=== PATIENT | male | born 1980 | race Two or more races ===

== ENCOUNTER 2016-06-29 09:47 | Inpatient (IN) | payer OTHER ==
[~2016-06-29] VITALS: Ht 172.7 cm; Wt 79.7 kg
[2016-06-29 10:41] LABS: BASO % 0.3 % (0.0-1.0); EOS % 0.6 % (0.0-3.0); LARGE UNSTAINED CELL # 0.1 K/mm3 (0.0-0.4); LYMPH # 2.1 K/mm3 (1.5-4.5); MEAN CORPUSCULAR HEMOGLOBIN 32.2 pg (27.0-33.0); MEAN CORPUSCULAR HGB CONC 33.6 g/dl (32.0-36.5); MEAN CORPUSCULAR VOLUME 95.9 fl (80.0-96.0); MONO # 0.3 K/mm3 (0.0-0.8); NEUTROPHILS # 4.1 K/mm3 (1.8-7.7); NEUTROPHILS % 62.1 % (36.0-66.0); PLATELET COUNT, AUTOMATED 272 k/mm3 (150-450); RED CELL DISTRIBUTION WIDTH 12.1 % (11.5-14.5); WHITE BLOOD COUNT 6.6 K/mm3 (4.0-10.0)
[2016-06-29] MEDS ORDERED: THIA50CA PO (10:44)
[2016-06-29] MEDS ORDERED: CLON1TAB (10:44)
[2016-06-29] MEDS ORDERED: FOLI5INJ2 SC (10:44)
[2016-06-29] MEDS ORDERED: SERO200T (10:49)
[2016-06-29] MEDS ORDERED: SERO1TAB PO (10:49)
[2016-06-29 11:04] LABS: ALBUMIN 3.7 GM/DL (3.2-5.2); ALBUMIN/GLOBULIN RATIO 1.09 (1.00-1.93); ALKALINE PHOSPHATASE 67 U/L (45-117); ALT/SGPT 82 U/L (12-78); ANION GAP 11 MEQ/L (8-16); AST/SGOT 60 U/L (15-37); BILIRUBIN,DIRECT 0.1 MG/DL (0.0-0.2); BILIRUBIN,TOTAL 0.5 MG/DL (0.2-1.0); BLOOD UREA NITROGEN 15 MG/DL (7-18); CALCIUM LEVEL 7.8 MG/DL (8.5-10.1); CARBON DIOXIDE LEVEL 32 MEQ/L (21-32); CHLORIDE LEVEL 104 MEQ/L (98-107); CREATININE FOR GFR 1.04 MG/DL (0.70-1.30); GLOMERULAR FILTRATION RATE > 60.0 (>60); GLUCOSE, FASTING 148 MG/DL (70-105); POTASSIUM SERUM 3.5 MEQ/L (3.5-5.1); SODIUM LEVEL 147 MEQ/L (136-145); TOTAL PROTEIN 7.1 GM/DL (6.4-8.2)
[2016-06-29] MEDS ORDERED: ONDANSETRON 4MG/2ML VIAL (J2405) IV ONE (11:45)
[2016-06-29] MEDS ORDERED: PANTOPRAZOLE 40MG INJ (PROTONIX) (C9113) IV ONE (11:45)
--- NOTE | 2016-06-29 20:41 | ECGEPIP ---
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
[2016-06-29 21:17] LABS: METHADONE URINE NEGATIVE (NEGATIVE)
[2016-06-29] MEDS ORDERED: METOCLOPRAMIDE 10 MG TAB PO ONE (21:30)
[2016-06-30] MEDS ORDERED: PHENobarbital 30 MG TAB PO ONE (03:00)
[2016-06-30] MEDS ORDERED: OXAZEPAM 15 MG CAP PO ONE ×3 (08:30→19:45)
[2016-06-30] MEDS ORDERED: QUET5TAB PO (09:18)
[2016-06-30] MEDS ORDERED: FOLI1TAB2 PO (09:21)
[2016-06-30] MEDS ORDERED: THIA100T PO (09:21)
[2016-06-30] MEDS ORDERED: HYDR-4274 PO (09:21)
[2016-06-30] MEDS ORDERED: ONDANSETRON 4 MG ORAL DISINTEGRATING TAB (S0181) PO ONE (10:45)
[2016-06-30] MEDS ORDERED: MOM 30ML SUSPENSION UDC PO PRN (17:00)
[2016-06-30] MEDS ORDERED: traZODone 50 MG TAB PO PRN (17:00)
[2016-06-30] MEDS ORDERED: MAALOX 30 ML SUSP *UDC PO PRN (17:00)
[2016-06-30 18:44] VITALS: BP 130/75
[2016-06-30 18:46] VITALS: BP 130/75
[2016-06-30] MEDS ORDERED: OXAZEPAM 15 MG CAP PO PRN (19:45)
[2016-06-30] MEDS: ONDANSETRON 4 MG TAB (S0181) PO PRN (21:20)
[2016-07-01] MEDS: ONDANSETRON 4 MG TAB (S0181) PO PRN ×3 (06:20→18:57)
[2016-07-01 06:24] VITALS: BP 107/62
[2016-07-01] MEDS: FOLIC ACID 1 MG TAB PO SCH (09:01)
[2016-07-01] MEDS: MULTIVITAMINS/MINERALS THERAP 1 TAB PO SCH (09:01)
[2016-07-01] MEDS: THIAMINE 100 MG TAB PO SCH (09:01)
[2016-07-01 10:45] VITALS: BP 130/84
--- NOTE | 2016-07-01 11:29 | HPEPDOC ---
Medical History and Physical Date of Admission Jun 30, 2016 at 16:59 History and Physical PCP: [facility] ATTENDING: Dr. Robert Basurto HPI: 36yoM admitted to [facility] for unspecified depressive disorder, being medically examined today. Patient presented to the emergency department after drinking alcohol and taking 10 tablets of Seroquel. Poison control was consulted with recommendation for observation and follow-up labs. The patient was medically stabilized in the emergency department and subsequently deemed stable for [facility] admission. No acute medical complaints today. Denies any fevers , chills, weakness, fatigue, MARY, CP, SOB, cough, palpitations, abdominal pain, N /V/D or changes in bowel or bladder habits. 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 Illicit Drugs: Denies IV Drug Use: Denies Tattoos done unprofessionally: Denies FAMHX: Mother: Alive, diabetes Father: Alive, diabetes Siblings: One brother Alive, well Children: Alive, well Unexpected deaths due to medical reasons: None. ROS: As noted in HPI, otherwise 11pt ROS of systems reviewed and remarkable for some nausea in ED but that has improved. Tolerating po intake. PE: GEN: 36yoM, appears stated age. Well-nourished, well developed. No acute distress. Alert and oriented x 3. Pleasant, interactive. HEENT: Normocephalic, atraumatic. Pupils are equal, round, and reactive to light. Extraocular movements are intact. No nystagmus appreciated. Sclera are nonicteric. Conjunctiva without injection. Nose midline. Nasal turbinates without bogginess. EACs both patent BL. TMs both visualized and quick with good cone of light, no bulging or erythema. No facial asymmetry. Moist mucous membranes. Dentition fair. Pharynx pink and moist, no cobblestoning. Neck supple , trachea midline. No lymphadenopathy or thyromegaly appreciated. CHEST: Regular rate and rhythm, +S1, +S2 LUNGS: Clear to auscultation bilaterally. No wheezes, rales, or rhonchi. Breathing appears symmetric and easy. Patient is speaking in full sentences. No accessory muscle use. ABD: Round, soft, non-tender, non-distended. +Bowel sounds throughout. No rebound or guarding. No costovertebral angle tenderness. EXT: Pulses 2+ bilaterally dorsalis pedis and radial. No lower extremity edema appreciated. SKIN: [place], dry, warm. Capillary refill <2sec. No rashes. NEURO: Alert and oriented x 3. Cranial nerves III-XII are intact. No focal deficits appreciated. EK06/29/16 ST 100 bpm. A&P: 36yoM admitted to [facility] for unspecified depressive disorder 1. Psych. Plan per Psychiatry. EKG on file. 2. Hypernatremia. Recheck CMP. 3. Hyperglycemia. Recheck fasting labs as patient was likely not fasting. 4. Follow up with PCP on discharge. 5. Substance use. Per psychiatry. Continue with MVI, Thiamine, and Folic Acid supplementation. 6. Elevated LFTs. Recheck CMP. 7. Staff member present throughout exam, patient safety coordinator Ed. Vital Signs Vital Signs Label Value Date Time Patient Temperature 97.4 degrees F 07/01/16 1045 Temperature Source Tympanic 07/01/16 1045 Pulse 94 07/01/16 1045 Respiratory Rate 16 bpm 07/01/16 1045 Blood Pressure Assessment 130/84 (99) 07/01/16 1045 Laboratory Data Labs 24H Item Value Date Time White Blood Count 6.6 K/mm3 06/29/16 1011 Red Blood Count 4.73 M/mm3 06/29/16 1011 Hemoglobin 15.2 g/dl 06/29/16 1011 Hematocrit 45.4 % 06/29/16 1011 Mean Corpuscular Volume 95.9 fl 06/29/16 1011 Mean Corpuscular Hemoglobin 32.2 pg 06/29/16 1011 Mean Corpuscular Hemoglobin Concent 33.6 g/dl 06/29/16 1011 Red Cell Distribution Width 12.1 % 06/29/16 1011 Platelet Count 272 k/mm3 06/29/16 1011 Neutrophils (%) (Auto) 62.1 % 06/29/16 1011 Lymphocytes (%) (Auto) 30.0 % 06/29/16 1011 Monocytes (%) (Auto) 5.0 % 06/29/16 1011 Eosinophils (%) (Auto) 0.6 % 06/29/16 1011 Basophils (%) (Auto) 0.3 % 06/29/16 1011 Large Unclassified Cells % 2.0 % 06/29/16 1011 Neutrophils # (Auto) 4.1 K/mm3 06/29/16 1011 Lymphocytes # (Auto) 2.1 K/mm3 06/29/16 1011 Eosinophils # (Auto) 0.0 K/mm3 06/29/16 1011 Monocytes # (Auto) 0.3 K/mm3 06/29/16 1011 Basophils # (Auto) 0.0 K/mm3 06/29/16 1011 Large Unclassified Cells # 0.1 K/mm3 06/29/16 1011 Sodium Level 147 MEQ/L H 06/29/16 1011 Potassium Level 3.5 MEQ/L 06/29/16 1011 Chloride Level 104 MEQ/L 06/29/16 1011 Carbon Dioxide Level 32 MEQ/L 06/29/16 1011 Anion Gap 11 MEQ/L 06/29/16 1011 Blood Urea Nitrogen 15 MG/DL 06/29/16 1011 Creatinine 1.04 MG/DL 06/29/16 1011 Glomerular Filtration Rate > 60.0 06/29/16 1011 Fasting Glucose 148 MG/DL H 06/29/16 1011 Calcium Level 7.8 MG/DL L 06/29/16 1011 Total Bilirubin 0.5 MG/DL 06/29/16 1011 Direct Bilirubin 0.1 MG/DL 06/29/16 1011 Aspartate Amino Transf (AST/SGOT) 60 U/L H 06/29/16 1011 Alanine Aminotransferase (ALT/SGPT) 82 U/L H 06/29/16 1011 Alkaline Phosphatase 67 U/L 06/29/16 1011 Total Creatine Kinase 189 U/L 06/29/16 1011 Total Protein 7.1 GM/DL 06/29/16 1011 Albumin 3.7 GM/DL 06/29/16 1011 Albumin/Globulin Ratio 1.09 06/29/16 1011 Thyroid Stimulating Hormone (TSH) 0.788 uIU/ML 06/29/16 1011 Salicylates Level < 1.7 MG/DL L 06/29/16 1011 Urine Opiates Screen NEGATIVE 06/29/162018 Urine Methadone Screen NEGATIVE 06/29/162018 Acetaminophen Level < 2.0 UG/ML L 06/29/16 1011 Urine Barbiturates Screen NEGATIVE 06/29/162018 Urine Phencyclidine Screen NEGATIVE 06/29/162018 Urine Amphetamines Screen NEGATIVE 06/29/162018 Urine Benzodiazepines Screen NEGATIVE 06/29/162018 Urine Cocaine Metabolite Screen NEGATIVE 06/29/162018 Urine Cannabinoids Screen NEGATIVE 06/29/162018 Ethyl Alcohol Level 0.377 % H 06/29/16 1011 Home Medications Scheduled Clonazepam (Clonazepam) Unknown Strength Tab Unknown Dose TID PT UNSURE OF STRENGTH- UNABLE TO CALL PHARMACY JUST MOVED HERE FROM OUT OF STATE - PT NOT GOOD HISTORIAN Folic Acid (Folic Acid) 1 Mg Tab 1 MG PO DAILY Hydroxyzine HCl (Hydroxyzine HCl) Unknown Strength Tab Unknown Dose PO TID PT UNSURE OF STRENGTH- UNABLE TO CALL PHARMACY JUST MOVED HERE FROM OUT OF STATE - PT NOT GOOD HISTORIAN Quetiapine Fumerate (Seroquel) 100 Mg Tab 100 MG PO QHS Quetiapine Fumerate (Quetiapine Fumarate) 50 Mg Tab 50 MG PO BID 0800,1300 Thiamine HCl (Thiamine HCl) 100 Mg Tab 100 MG PO DAILY Allergies Coded Allergies: Sulfa Antibiotics (Verified Allergy, Intermediate, hives, 06/29/16) Jigna Yan Jul 01, 2016 11:29
[2016-07-01] MEDS ORDERED: chlordiazePOXIDE 25 MG CAP PO ONE (12:00)
[2016-07-01] MEDS: buPROPion 75 MG TAB PO SCH ×2 (12:10→21:05)
[2016-07-01] MEDS: chlordiazePOXIDE 25 MG CAP PO SCH ×2 (16:11→21:05)
[2016-07-01 18:00] VITALS: BP 122/71
[2016-07-01] MEDS ORDERED: traZODone 100 MG TAB PO SCH (21:00)
[2016-07-01] MEDS ORDERED: ACETAMINOPHEN TAB 650MG DOSE (2X325MG) PO PRN (22:45)
[2016-07-02 06:45] VITALS: BP 107/54
[2016-07-02 07:50] LABS: ALBUMIN 3.8 GM/DL (3.2-5.2); ALBUMIN/GLOBULIN RATIO 1.19 (1.00-1.93); ALKALINE PHOSPHATASE 81 U/L (45-117); ALT/SGPT 65 U/L (12-78); ANION GAP 9 MEQ/L (8-16); AST/SGOT 28 U/L (15-37); BILIRUBIN,TOTAL 1.1 MG/DL (0.2-1.0); BLOOD UREA NITROGEN 13 MG/DL (7-18); CALCIUM LEVEL 8.7 MG/DL (8.5-10.1); CARBON DIOXIDE LEVEL 31 MEQ/L (21-32); CHLORIDE LEVEL 102 MEQ/L (98-107); CREATININE FOR GFR 1.21 MG/DL (0.70-1.30); GLOMERULAR FILTRATION RATE > 60.0 (>60); GLUCOSE, FASTING 120 MG/DL (70-105); POTASSIUM SERUM 3.5 MEQ/L (3.5-5.1); SODIUM LEVEL 142 MEQ/L (136-145)
[2016-07-02] MEDS: chlordiazePOXIDE 25 MG CAP PO SCH ×3 (08:36→21:04)
[2016-07-02] MEDS: buPROPion 75 MG TAB PO SCH ×2 (08:36→21:03)
[2016-07-02] MEDS: FOLIC ACID 1 MG TAB PO SCH (08:37)
[2016-07-02] MEDS: ONDANSETRON 4 MG TAB (S0181) PO PRN (08:37)
[2016-07-02] MEDS: MULTIVITAMINS/MINERALS THERAP 1 TAB PO SCH (08:37)
[2016-07-02] MEDS: THIAMINE 100 MG TAB PO SCH (08:37)
[2016-07-02] MEDS: chlordiazePOXIDE 25 MG CAP PO PRN ×2 (09:25→16:56)
[2016-07-02 10:32] VITALS: BP 131/72
[2016-07-02 14:22] VITALS: BP 124/74
[2016-07-02 18:00] VITALS: BP 126/57
--- NOTE | 2016-07-02 20:14 | IPN ---
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 MEDICATIONS: - Librium 50 mg by mouth three times a day plus 50 mg by mouth three times a day as needed for alcohol withdrawal - trazodone 100 mg by mouth at bedtime - Wellbutrin 75 mg by mouth twice a day - thiamine, folic acid, and multivitamin as per detoxification (detox) protocol SUBJECTIVE: "I'm still having withdrawal symptoms." OBJECTIVE: The patient reports that after one hour of taking the Librium, he starts shaking again. I discussed the treatment with the patient. I told him that he has additional medication and when he feels that he has withdrawal symptoms, to call nursing to be evaluated. The patient appears to be motivated for treatment. The patient continues to be depressed with psychomotor retardation and poor monotone speech. The patient reports insomnia. MENTAL STATUS EXAMINATION: The patient is dressed in [facility]. The patient is cooperative during exam. Speech is slow and monotone. Mood is depressed and anxious. Affect is restricted. No evidence of delusions or hallucinations. Memory is fair. Patient is fully oriented. Associations are intact. Thinking is logical. Thought content is appropriate. Patient is able to contract for safety. Denies suicidal or homicidal ideations during the interview. Insight and judgment are fair. ASSESSMENT: 1. Depression. 2. Suicidal ideation. 3. Alcohol dependency. PLAN: 1. Increase trazodone to 150 mg by mouth at bedtime. 2. Continue with Librium 50 mg by mouth three times a day, plus 50 mg by mouth three times a day as needed for alcohol withdrawal. 3. Continue with bupropion 75 mg by mouth twice a day. 4. Continue with thiamine, folic acid, and multivitamin as per detox protocol.
[2016-07-02] MEDS: traZODone 50 MG TAB PO SCH (21:04)
[2016-07-02 22:00] VITALS: BP 126/64
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
[2016-07-03 06:46] VITALS: BP 94/51
[2016-07-03] MEDS: THIAMINE 100 MG TAB PO SCH (08:14)
[2016-07-03] MEDS: chlordiazePOXIDE 25 MG CAP PO SCH ×3 (08:14→22:32)
[2016-07-03] MEDS: buPROPion 75 MG TAB PO SCH ×2 (08:14→22:31)
[2016-07-03] MEDS: FOLIC ACID 1 MG TAB PO SCH (08:14)
[2016-07-03] MEDS: MULTIVITAMINS/MINERALS THERAP 1 TAB PO SCH (08:14)
[2016-07-03] MEDS: ONDANSETRON 4 MG TAB (S0181) PO PRN ×2 (10:32→16:08)
[2016-07-03 11:46] VITALS: BP 90/54
[2016-07-03 18:00] VITALS: BP 113/64
[2016-07-03] MEDS: traZODone 50 MG TAB PO SCH (22:31)
[2016-07-04 07:08] VITALS: BP 94/52
[2016-07-04] MEDS: buPROPion 75 MG TAB PO SCH ×2 (09:16→21:33)
[2016-07-04] MEDS: MULTIVITAMINS/MINERALS THERAP 1 TAB PO SCH (09:16)
[2016-07-04] MEDS: THIAMINE 100 MG TAB PO SCH (09:16)
[2016-07-04] MEDS: FOLIC ACID 1 MG TAB PO SCH (09:16)
[2016-07-04] MEDS: chlordiazePOXIDE 25 MG CAP PO SCH ×3 (09:16→21:33)
--- NOTE | 2016-07-04 11:23 | IPN ---
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 MEDICATIONS: - Librium 50 mg by mouth three times a day plus 50 mg by mouth three times a day as needed for alcohol withdrawal. - trazodone 150 mg by mouth at bedtime - Wellbutrin 75 mg by mouth twice a day - thiamine, folic acid and multivitamins per alcohol detoxification protocol SUBJECTIVE: "I still have withdrawal symptoms." OBJECTIVE: Patient reports withdrawal symptoms, but his vital signs are mostly stable. Patient reports some distal tremors. Patient is having to take an extra dose of Librium a day. Patient continues depressed. He is mostly by himself in the room, interacting very little with other patients and staff. Continues with psychomotor retardation and poor monotone speech. Reports insomnia. MENTAL STATUS EXAMINATION: Patient is dressed in [facility]. Patient is cooperative during the examination. Has poor eye contact. Speech is soft and monotone. Mood is depressed and anxious. Affect is congruent with mood. No delusions or hallucinations. Memory is fair. Patient is fully oriented. Associations are intact. Thinking is logical. Thought content is appropriate. Patient is able to contract for safety. Denies suicidal or homicidal ideation during the interview. Insight and judgment is limited. ASSESSMENT: 1. Depression. 2. Suicidal ideation. 3. Alcohol dependency. PLAN: 1. Continue with trazodone 150 mg by mouth at bedtime. 2. Continue with Librium 50 mg by mouth three times a day plus 50 mg by mouth three times a day as needed insomnia. This medication will need to be tapered in the next one or two days. 3. Continue with bupropion 75 mg by mouth twice a day. 4. Continue with thiamin, folic acid and multivitamins as per detoxification protocol.
[2016-07-04 11:31] VITALS: BP 110/56
[2016-07-04 18:00] VITALS: BP 108/60
[2016-07-04] MEDS: traZODone 50 MG TAB PO SCH (21:34)
[2016-07-05 06:54] VITALS: BP 91/54
[2016-07-05] MEDS: MULTIVITAMINS/MINERALS THERAP 1 TAB PO SCH (09:00)
[2016-07-05] MEDS: THIAMINE 100 MG TAB PO SCH (09:00)
[2016-07-05] MEDS: NALTREXONE 50 MG TAB PO SCH (09:00)
[2016-07-05] MEDS: chlordiazePOXIDE 25 MG CAP PO SCH ×3 (09:00→20:46)
[2016-07-05] MEDS: buPROPion 75 MG TAB PO SCH ×2 (09:00→20:46)
[2016-07-05] MEDS: FOLIC ACID 1 MG TAB PO SCH (09:00)
[2016-07-05 12:00] VITALS: BP 106/58
[2016-07-05 18:00] VITALS: BP 120/56
[2016-07-05] MEDS: traZODone 50 MG TAB PO SCH (20:46)
[2016-07-06 06:22] VITALS: BP 102/68
[2016-07-06] MEDS: buPROPion 75 MG TAB PO SCH ×2 (08:21→21:16)
[2016-07-06] MEDS: THIAMINE 100 MG TAB PO SCH (08:21)
[2016-07-06] MEDS: NALTREXONE 50 MG TAB PO SCH (08:21)
[2016-07-06] MEDS: FOLIC ACID 1 MG TAB PO SCH (08:21)
[2016-07-06] MEDS: chlordiazePOXIDE 25 MG CAP PO SCH (08:22)
[2016-07-06] MEDS: MULTIVITAMINS/MINERALS THERAP 1 TAB PO SCH (08:22)
[2016-07-06] MEDS: clonazePAM 0.5 MG TAB PO SCH ×2 (15:52→21:16)
[2016-07-06 18:00] VITALS: BP 111/57
[2016-07-06] MEDS: traZODone 50 MG TAB PO SCH (21:16)
[2016-07-07 06:45] VITALS: BP 98/55
--- NOTE | 2016-07-07 07:35 | IPN ---
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 He has presently been placed on Klonopin 0.5 three times a day by me and his Librium has been discontinued due to being redundant. MEDICATIONS: - trazodone 150 mg at bedtime - Wellbutrin 75 mg twice a day - thiamine - folic acid - multivitamin He was having withdrawal symptoms. He stated to nursing that he was significantly anxious and asked us to change him to Klonopin. He stated this is what he needed for anxiety. His symptoms of anxiety may be due merely to his use of alcohol. He is to be chaptered out of the [employer]. He states he overdosed on alcohol and Seroquel when his Wellbutrin was stopped. He has been a binge drinker he states, but he contradicts that by stating he had drank every day for the last two years. MENTAL STATUS EXAMINATION: The patient is downcast in appearance and anxious. His eye contact is only fair. His speech is quiet with normal articulation. His mood was euthymic. His affect was somewhat flat. He denies hallucinations or delusions. His memory was remote, recent, intact. He was fully oriented. No loose associations, and presently denied suicidal or homicidal ideation. Judgment was fair. ASSESSMENT: 1. Depression. 2. Suicidal ideation. 3. Alcohol dependency. TREATMENT PLAN: Continue his management and return [facility] to the [employer] for [facility] treatment MTDD
[2016-07-07] MEDS: FOLIC ACID 1 MG TAB PO SCH (08:17)
[2016-07-07] MEDS: MULTIVITAMINS/MINERALS THERAP 1 TAB PO SCH (08:18)
[2016-07-07] MEDS: buPROPion 75 MG TAB PO SCH ×2 (08:18→21:39)
[2016-07-07] MEDS: THIAMINE 100 MG TAB PO SCH (08:18)
[2016-07-07] MEDS: NALTREXONE 50 MG TAB PO SCH (08:18)
[2016-07-07] MEDS: clonazePAM 0.5 MG TAB PO SCH (08:18)
[2016-07-07] MEDS ORDERED: QUET5TAB PO (09:53)
[2016-07-07] MEDS ORDERED: CLON1TAB PO (09:53)
[2016-07-07] MEDS: clonazePAM 1 MG TAB PO SCH ×2 (15:09→21:39)
--- NOTE | 2016-07-07 18:05 | IPN ---
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 He is presently on Klonopin, which we increased to 1 mg three times a day, as the patient continues to describe anxiety but is having no other withdrawal symptoms. He states he drank since he was 19 years old, drinking a pint of vodka a day. He describes himself as a binge drinker, but, in fact, his pattern is of chronic alcoholism. MENTAL STATUS EXAMINATION: The patient was less downcast in appearance, and although he did appear anxious, his eye contact was good. His speech was quiet with normal articulation. His mood was euthymic. His affect was slightly improved. He denied hallucinations or delusions. His memory was intact for remote and recent memory. He is fully oriented with no loose associations and presently denies suicidal or homicidal ideation. His judgment is fair. ASSESSMENT: Depression. Suicidal ideation. Alcohol dependency. TREATMENT PLAN: Is to continue his management and return him to the [employer] for alcohol treatment and rehabilitation. BA
[2016-07-07 20:44] VITALS: BP 98/50
[2016-07-07] MEDS: traZODone 50 MG TAB PO SCH (21:39)
[2016-07-08 06:00] VITALS: BP 97/60
[2016-07-08] MEDS: NALTREXONE 50 MG TAB PO SCH (08:36)
[2016-07-08] MEDS: clonazePAM 1 MG TAB PO SCH ×2 (08:36→21:25)
[2016-07-08] MEDS: MULTIVITAMINS/MINERALS THERAP 1 TAB PO SCH (08:36)
[2016-07-08] MEDS: THIAMINE 100 MG TAB PO SCH (08:36)
[2016-07-08] MEDS: FOLIC ACID 1 MG TAB PO SCH (08:36)
[2016-07-08] MEDS: buPROPion 75 MG TAB PO SCH ×2 (08:36→21:24)
[2016-07-08] MEDS ORDERED: BISACODYL 5 MG TAB PO ONE (15:45)
[2016-07-08 18:00] VITALS: BP 107/55
[2016-07-08] MEDS: traZODone 50 MG TAB PO SCH (21:24)
--- NOTE | 2016-07-08 21:45 | IPN ---
DATE: 07/08/2016 I saw Mr. Trevino today. I discussed him with group. 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 He had previously discussed needing and willingness to go to long-term alcohol inpatient treatment but today tells me he changed his mind 203 days ago. 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 He changed his mind. He would like to go to [place] to work. He says he is presently in the [facility] program, and he would like to be discharged this week. From a medical point of view, he has complaints of constipation, and I placed him on bisacodyl medication. MENTAL STATUS: Patient was less downcast. Did not appear anxious and agreed to my decreasing his Klonopin. His eye contact was good. His speech was quiet with normal articulation. His mood was euthymic. His affect continued to be neutral. No hallucinations or delusions. His memory was intact for remote and recent memory. He was fully oriented with no loose associations and presently denies suicidal or homicidal ideation. His judgment is fair. ASSESSMENT/DIAGNOSIS: Depression and alcohol dependency. He will return to the [facility] for alcohol treatment and rehabilitation and discharge. BA
[2016-07-09 06:26] VITALS: BP 100/53
[2016-07-09] MEDS: buPROPion 75 MG TAB PO SCH ×2 (09:05→20:57)
[2016-07-09] MEDS: MULTIVITAMINS/MINERALS THERAP 1 TAB PO SCH (09:05)
[2016-07-09] MEDS: NALTREXONE 50 MG TAB PO SCH (09:05)
[2016-07-09] MEDS: FOLIC ACID 1 MG TAB PO SCH (09:05)
[2016-07-09] MEDS: clonazePAM 1 MG TAB PO SCH (09:05)
[2016-07-09] MEDS: THIAMINE 100 MG TAB PO SCH (09:06)
[2016-07-09] MEDS ORDERED: hydrOXYzine 25 MG TAB PO PRN (11:45)
[2016-07-09 18:00] VITALS: BP 107/64
--- NOTE | 2016-07-09 19:22 | IPN ---
DATE: 07/09/2016 SUBJECTIVE: Mr. Trevino was seen with me today and nursing. He stated he needed something for anxiety since we were discontinuing his Klonopin. We have prescribed Atarax 25 mg four times a day. He stated his constipation is relieved and that, however, he was waking up in the middle of the night. We increased his trazodone to 200 mg. He continues to not want to go to alcohol treatment and merely wants to return to the [employer] and go to their outpatient program. I will discuss it with the business planner. MENTAL STATUS EXAMINATION: Mood is generally improved. Eye contact good. Speech was quiet. Normal articulation and volume speech. His mood was euthymic. His affect continued to be neutral. No hallucinations or delusions. His memory was intact for remote and recent episodes. He was fully oriented with no loose associations and presently denies suicidal or homicidal ideations. ASSESSMENT/DIAGNOSES: 1. Depression. 2. Alcohol dependency. Treatment and rehabilitation will be discussed with discharge planning.
[2016-07-09] MEDS: traZODone 100 MG TAB PO SCH (20:57)
[2016-07-09] MEDS ORDERED: traZODone 50 MG TAB PO SCH (21:00)
[2016-07-10 06:27] VITALS: BP 104/53
[2016-07-10] MEDS: MULTIVITAMINS/MINERALS THERAP 1 TAB PO SCH (08:33)
[2016-07-10] MEDS: THIAMINE 100 MG TAB PO SCH (08:33)
[2016-07-10] MEDS: FOLIC ACID 1 MG TAB PO SCH (08:33)
[2016-07-10] MEDS: NALTREXONE 50 MG TAB PO SCH (08:34)
[2016-07-10] MEDS: buPROPion 75 MG TAB PO SCH ×2 (08:34→21:40)
[2016-07-10] MEDS ORDERED: clonazePAM 1 MG TAB PO SCH (09:00)
[2016-07-10] MEDS: hydrOXYzine 50 MG TAB PO PRN ×2 (14:39→21:40)
[2016-07-10 18:00] VITALS: BP 96/52
[2016-07-10] MEDS: traZODone 100 MG TAB PO SCH (21:40)
--- NOTE | 2016-07-11 06:19 | IPN ---
DATE: 07/10/2016 Mr. Trevino complains of anxiety. He was not aware that I had prescribed Atarax. I have now prescribed Atarax at 50 mg by mouth four times a day as needed for anxiety. He continues to not want inpatient alcohol rehabilitation and will be attending outpatient treatment for his alcoholism as per the . He denies hallucinations, delusions, obsessions, compulsions or phobias. Affect is flat. Mood is fair. Speech is slow, volume is quiet. Memory for recent and remote is intact. He is fully oriented, full fund of information. No loose associations. He denies suicidal or homicidal ideation, and his judgment is fair.
[2016-07-11 06:41] VITALS: BP 97/53
[2016-07-11] MEDS: buPROPion 75 MG TAB PO SCH ×2 (09:00→21:38)
[2016-07-11] MEDS: MULTIVITAMINS/MINERALS THERAP 1 TAB PO SCH (09:00)
[2016-07-11] MEDS: FOLIC ACID 1 MG TAB PO SCH (09:00)
[2016-07-11] MEDS: NALTREXONE 50 MG TAB PO SCH (09:00)
[2016-07-11] MEDS: THIAMINE 100 MG TAB PO SCH (09:00)
[2016-07-11] MEDS: hydrOXYzine 50 MG TAB PO PRN ×3 (09:02→21:39)
[2016-07-11 18:00] VITALS: BP 123/58
[2016-07-11] MEDS: traZODone 100 MG TAB PO SCH (21:38)
[2016-07-11] MEDS: MICONAZOLE 2 % POWDER (DESENEX) TOP SCH (21:39)
[2016-07-12 06:46] VITALS: BP 102/53
[2016-07-12] MEDS: FOLIC ACID 1 MG TAB PO SCH (08:22)
[2016-07-12] MEDS: hydrOXYzine 50 MG TAB PO PRN (08:22)
[2016-07-12] MEDS: MULTIVITAMINS/MINERALS THERAP 1 TAB PO SCH (08:22)
[2016-07-12] MEDS: THIAMINE 100 MG TAB PO SCH (08:22)
[2016-07-12] MEDS: MICONAZOLE 2 % POWDER (DESENEX) TOP SCH ×2 (08:22→21:11)
[2016-07-12] MEDS: NALTREXONE 50 MG TAB PO SCH (08:22)
[2016-07-12] MEDS: buPROPion 75 MG TAB PO SCH ×2 (08:22→21:09)
[2016-07-12] MEDS: FLUoxetine 10 MG CAP PO SCH (14:49)
[2016-07-12 18:00] VITALS: BP 114/58
[2016-07-12] MEDS: traZODone 100 MG TAB PO SCH (21:09)
[2016-07-13 06:38] VITALS: BP 95/55
[2016-07-13] MEDS: MICONAZOLE 2 % POWDER (DESENEX) TOP SCH (09:24)
[2016-07-13] MEDS: FLUoxetine 10 MG CAP PO SCH (09:24)
[2016-07-13] MEDS: MULTIVITAMINS/MINERALS THERAP 1 TAB PO SCH (09:24)
[2016-07-13] MEDS: FOLIC ACID 1 MG TAB PO SCH (09:24)
[2016-07-13] MEDS: THIAMINE 100 MG TAB PO SCH (09:24)
[2016-07-13] MEDS: NALTREXONE 50 MG TAB PO SCH (09:24)
[2016-07-13] MEDS: buPROPion 75 MG TAB PO SCH (09:24)
--- NOTE | 2016-07-13 09:32 | IPN ---
DATE: 07/13/2016 I had met with Mr. Trevino over the weekend. He continued with complaints of anxiety. When I first took over his case, he had been on a benzodiazepine, which was reduced due to his alcohol use and he had previously to that been on Librium. He continued his complaints of anxiety throughout his stay last week. I had given him Atarax, which was then increased as an as needed to 50 mg four times a day. He felt no improvement. Yesterday, I prescribed fluoxetine 10 mg. Today, patient states he is feeling significantly better. His affect is brighter. His anxiety is reduced. His eye contact is better. We will be discussing his discharge back to the [facility] today in treatment team. Patient's appearance is appropriate. Eye contact was good. Speech was of a higher volume than previously. Articulation was good. Mood was improved. Affect was brighter. He denied hallucinations and delusions. Memory was good. Orientation in three spheres was present. No loose associations. He denied suicidal or homicidal ideation. Judgment was good. DIAGNOSIS: Generalized anxiety disorder. Alcohol dependence.
[2016-07-13] MEDS ORDERED: MICO2POW TOP (10:21)
[2016-07-13] MEDS ORDERED: THIA100TA PO (10:21)
[2016-07-13] MEDS ORDERED: TRAZ10TA PO (10:21)
[2016-07-13] MEDS ORDERED: BUPR75TA5 PO (10:21)
[2016-07-13] MEDS ORDERED: FLUO10CA9 PO (10:21)
[2016-07-13] MEDS ORDERED: NALT50TA4 PO (10:21)
[2016-07-13] MEDS ORDERED: FOLI1TAB2 PO (10:21)
[2016-07-13] MEDS ORDERED: DESE1CRE TOP (10:36)
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
[2016-07-13] MEDS ORDERED: MICONAZOLE 2 % POWDER (DESENEX) TOP SCH (21:00)
== END 2016-07-13 12:35 | disposition home or self-care (01) | DRG 881 ==
LOC: EDBD 09:47 → M ED 14:02 → M ED INP 06-30 16:59 → M PSY 06-30 18:42
PROVIDERS: ADMIT Internal Medicine Addiction Medicine; ATTEND Psychiatry & Neurology Child & Adolescent Psychiatry
DX: F32.9 Major depressive disorder, single episode, unspecified (principal); F10.24 Alcohol dependence with alcohol-induced mood disorder; E87.0 Hyperosmolality and hypernatremia; F10.229 Alcohol dependence with intoxication, unspecified; T43.592A Poisoning by other antipsychotics and neuroleptics, intentional self-harm, initial encounter; Y92.9 Unspecified place or not applicable; K59.00 Constipation, unspecified; F41.1 Generalized anxiety disorder; Z81.1 Family history of alcohol abuse and dependence; Z62.811 Personal history of psychological abuse in childhood; Z81.8 Family history of other mental and behavioral disorders; Z88.2 Allergy status to sulfonamides; Z79.899 Other long term (current) drug therapy

== ENCOUNTER 2016-10-08 00:28 | Observation (INO) | payer OTHER ==
[~2016-10-08] VITALS: Ht 172.7 cm; Wt 78.5 kg
[~2016-10-08 00:28] MED LIST: BUPR75TA5 PO; CLON1TAB; CLON1TAB PO; DESE1CRE TOP; FLUO10CA9 PO; FOLI1TAB2 PO; FOLI5INJ2 SC; HYDR-4274 PO; MICO2POW TOP; NALT50TA4 PO; QUET5TAB PO; SERO1TAB PO; SERO200T; THIA100T PO; THIA100TA PO; THIA50CA PO; TRAZ10TA PO
[2016-10-08] MEDS ORDERED: WELLTAB38 PO ×2 (00:52→07:32)
[2016-10-08] MEDS ORDERED: MELA0.02 PO (00:52)
[2016-10-08] MEDS ORDERED: CHARCOAL ACTIVATED LIQUID 25 GM/120 ML BTL PO ONE (01:15)
[2016-10-08 01:49] LABS: ALBUMIN 4.6 GM/DL (3.2-5.2); ALBUMIN/GLOBULIN RATIO 1.21 (1.00-1.93); ALKALINE PHOSPHATASE 61 U/L (45-117); ALT/SGPT 21 U/L (12-78); ANION GAP 6 MEQ/L (8-16); AST/SGOT 13 U/L (15-37); BILIRUBIN,DIRECT 0.2 MG/DL (0.0-0.2); BILIRUBIN,TOTAL 0.6 MG/DL (0.2-1.0); BLOOD UREA NITROGEN 9 MG/DL (7-18); CALCIUM LEVEL 8.8 MG/DL (8.5-10.1); CARBON DIOXIDE LEVEL 32 MEQ/L (21-32); CHLORIDE LEVEL 105 MEQ/L (98-107); CREATININE FOR GFR 1.22 MG/DL (0.70-1.30); GLOMERULAR FILTRATION RATE > 60.0 (>60); GLUCOSE, FASTING 92 MG/DL (70-105); POTASSIUM SERUM 3.8 MEQ/L (3.5-5.1); SODIUM LEVEL 143 MEQ/L (136-145); TOTAL PROTEIN 8.4 GM/DL (6.4-8.2)
[2016-10-08 01:57] LABS: MEAN CORPUSCULAR HEMOGLOBIN 31.5 pg (27.0-33.0); MEAN CORPUSCULAR HGB CONC 33.8 g/dl (32.0-36.5); MEAN CORPUSCULAR VOLUME 93.2 fl (80.0-96.0); RED CELL DISTRIBUTION WIDTH 11.6 % (11.5-14.5); WHITE BLOOD COUNT 5.6 K/mm3 (4.0-10.0)
[2016-10-08 03:34] LABS: METHADONE URINE NEGATIVE (NEGATIVE)
[2016-10-08] MEDS: HEPARIN SOD (PORCINE) 5000 UNITS/ML VIAL SC SCH ×2 (06:00→14:00)
[2016-10-08] MEDS ORDERED: NS 1,000 ML IV ONE ×2 (07:30→11:00)
[2016-10-08] MEDS ORDERED: TRAZ100T4 PO (07:32)
[2016-10-08] MEDS ORDERED: FLUO20TA28 PO (07:32)
[2016-10-08] MEDS ORDERED: ACET-654 PO (07:33)
[2016-10-08] MEDS ORDERED: IBUP80TA PO (07:33)
[2016-10-08] MEDS ORDERED: ACETAMINOPHEN TAB 650MG DOSE (2X325MG) PO PRN ×2 (08:00→10:15)
--- NOTE | 2016-10-08 09:29 | ECGEPIP ---
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
[2016-10-08] MEDS: NS 1,000 ML IV SCH ×2 (09:49→12:58)
[2016-10-08] MEDS ORDERED: KETOROLAC 30 MG/ML VIAL (J1885) IV ONE (10:00)
[2016-10-08] MEDS ORDERED: IBUPROFEN 600 MG TAB PO PRN (10:15)
[2016-10-08] MEDS ORDERED: FIORICET TAB PO ONE (10:15)
--- NOTE | 2016-10-08 11:41 | HPE ---
DATE OF ADMISSION: 10/08/2016 PRIMARY CARE PROVIDER: Rosa Maria Garza CHIEF COMPLAINT: Possible drug overdose, alcohol intoxication. HISTORY OF PRESENT ILLNESS: This is a 36-year-old male with a history of severe depression, anxiety, alcohol dependency who was recently admitted to the inpatient mental health unit at [facility] on 06/30 and discharged on 07/13/2016 for similar issues. Was brought in to the emergency room due to alcohol intoxication, as well as evaluation for possible drug overdose and suicide attempt. The patient has been in his usual state of health and has not had any alcohol since June 29, 2016. 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 The patient was drinking at 8:30 a.m. He denies any recent stressors, such as relationship issues or job stressors. He felt like drinking. He had two bottles of beer at home when his colleague entered the room at 10:30 and found him drinking, had called the ambulance due to concerns of empty pill bottles in his home. The patient was brought into the emergency room for a possible Wellbutrin overdose. At that time, EKG was normal. No prolonged QT. Poison Control was contacted and recommended admission for observation, as well as repeat 12-lead EKG in 8 to 12 hours. The patient denied any suicidal ideation or attempt. He states that he does not even have the pills with him at home and that the medication, trazodone, Prozac and Wellbutrin are dispensed by the [facility]. This was not confirmed until the patient was admitted to the hospital. The hospitalist service was called for admission for possible suicide overdose. The patient did receive one dose of oral charcoal. Upon speaking with the patient, I then obtained the information that he does not have medications at home and that this is given at the pharmacy once daily. We confirmed with the pharmacy that they do have these medications there and the patient is not in possession of them and that he does receive one tablet daily, for which he comes in the morning. His last dose was on 10/06/2016. The patient was brought into the hospital on 10/07/2016. PAST MEDICAL HISTORY: 1. Severe depression. 2. Alcohol dependency. 3. Anxiety. 4. Previous inpatient mental health unit admission in [place] and again at [facility] from 06/30 to 07/13/2016. 5. History of suicide ideation, overdose and insomnia. PAST SURGICAL HISTORY: 1. LASIK eye surgery. SOCIAL HISTORY: Resides at [place]. He is . He has three children. 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 Drinks one pint of vodka daily for the past two years with history of binge drinking. Denies illicit drug use or IV drug use. Tattoos done unprofessionally. FAMILY HISTORY: Mother with diabetes and alive. Father with diabetes and alive. One brother alive and well. REVIEW OF SYSTEMS: Denies any changes in appetite, low mood. Has a history of depression and anxiety, suicide ideation and overdose. History of alcohol dependency. Currently complains of generalized headache. No photophobia or neck rigidity. Denies rhinorrhea, sore throat, ear discharge or pain. Denies shortness of breath, chest pain, pressure, tightness, cough, fever or chills, nausea, vomiting, diarrhea, abdominal pain, dysuria, urgency, frequency. Upper and lower extremity muscle weakness, joint pain, or paresthesias. All other systems otherwise negative. 12-point system obtained. PHYSICAL EXAMINATION: VITAL SIGNS: Temperature 98.3, pulse 89, respiratory rate 16, blood pressure 107/55, 98% on room air. GENERAL: The patient is awake, alert, oriented times three. Answering questions appropriately. LUNGS: Clear to auscultation. No wheezes, rales, or rhonchi. HEART: S1, S2. Sinus rhythm. ABDOMEN: Soft, nontender, nondistended. Normoactive bowel sounds. EXTREMITIES: No cyanosis, clubbing or pitting edema. EKG showed sinus rhythm with a ventricular rate of 72. MS interval 181, QRS 93, QT 347, QTC 372 at 1:20 a.m. on 10/08/2016. LABORATORY DATA: White count 5.6, hemoglobin 16, hematocrit 47, platelet count 251. Sodium 143, potassium 3.8, chloride 105, bicarbonate 32, BUN 9, creatinine 1.22, glucose 92, calcium 8.8, total bilirubin 0.6, direct bilirubin 0.2, AST 13, ALT 21, alkaline phosphatase 61, total protein 8.4, albumin 4.6, TSH 0.74. ASSESSMENT AND PLAN: This is a 36-year-old male with a history of suicidal ideation, drug overdose, previous inpatient mental health unit admission in [place] and again at [facility] from 06/30 to 07/13/2016, severe depression, anxiety, alcohol dependence, presents to the emergency room, brought in by his colleagues due to alcohol intoxication with question of suicidal ideation and possible drug overdose with Wellbutrin bottle found empty at his home. The patient denies any suicidal ideation or attempt. Denies any drug overdose. 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 He goes to the pharmacy daily to obtain this medication, he does not keep any at his home. In the emergency room without this information, the patient was treated for possible Wellbutrin overdose and suicide attempt, was given activated charcoal times one. Upon admission, the patient gave more detailed history, confirmed with [facility] pharmacy, who states that the last fill on his medications was on 09/25/2016 and that the rest of the pills are with them at the pharmacy. The patient does not possess any of these medications. His last dose of medication was on 10/06/2016. The patient was brought into the emergency room on 10/07/2016. Last medications given were six tablets of trazodone and one tablet of Wellbutrin and four Prozac. The patient was admitted for alcohol intoxication and evaluation by the psychiatrist for severe depression. Currently with no suicidal ideation or plan. CURRENT ISSUES: 1. Alcohol intoxication. The patient has a history of alcohol dependence and alcohol abuse. Outpatient followup with rehabilitation program. The patient states that there have been no recent stressors in his life. He is currently retiring, this is his last week in the and will be returning back to [place] where he has his immediate family. Watch for delirium tremens precautions. Monitor for symptoms. 2. The patient complains of headache. The patient will be given IV Toradol and Fioricet as needed. 3. Severe depression with questionable suicide attempt and possible Wellbutrin overdose. The patient did receive one dose of oral activated charcoal by Dr. Tello, emergency room physician. Poison Control recommended monitoring for 24 hours. However, history was obtained from the patient and confirmed with his outpatient [facility] pharmacy states that the patient was not in possession of any medications at all and usually receives grape picker for his medications and takes his medications from the pharmacist at [facility]. Therefore, the patient will not be treated as a drug overdose. We will however recheck a repeat 12-lead EKG now and in six hours. Monitor for any changes. He is medically stable to be discharged once the psychiatrist clears him for discharge home. DISPOSITION: The patient is fine to be discharged home after Dr. Cain, psychiatrist, has evaluated him and if she feels that he is safe to be discharged.
[2016-10-08 14:55] VITALS: BP 110/66
--- NOTE | 2016-10-08 17:09 | ECGEPIP ---
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
--- NOTE | 2016-10-08 17:18 | ECGEPIP ---
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
--- NOTE | 2016-10-09 13:11 | CR ---
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 Apparently his command had found him intoxicated in his room and seeing some empty prescription bottles and were worried that he had overdosed. The patient denied that he had overdosed. Apparently, it seems that [facility] gives this patient his medications on a daily basis. He is on Prozac 20 mg once a day, trazodone 200 mg at bedtime, and he is not sure what dose of Wellbutrin he is on. 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 He says that the discharge will be in a week. 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 He states that, yes, he had been feeling very depressed back in June, when he was admitted to the psychiatric unit, but he really feels that his current medications are the best combination of medications that he has been on, and he tells me that he is not depressed. He admits that he was drinking a lot, and he says that it was just because he had just chosen to drink, and he denies that it was because he was feeling depressed. I did review the patient's admission records from his hospitalization at [facility] from 06/30/2016 to 07/13/2016. He apparently had taken an overdose of Seroquel. The patient was describing episodes of depression, where his energy level was low. He had poor sleep, poor appetite, and he did indicate that he tended to drink more when he is depressed. He described his drinking as occurring in binges. Again, he told me that this time he was not feeling depressed, like he had been in the past. I did not elicit any hypomanic or manic-like symptoms, posttraumatic stress disorder (PTSD) or obsessive-compulsive disorder (OCD) symptoms, or panic disorder in this patient. PAST PSYCHIATRIC HISTORY: The patient has a history of at least three prior psychiatric hospitalizations, the one at [facility] from 06/30/3016 to 07/13/2016, and also he had two psychiatric hospitalizations in [place], and apparently he was just recently transferred to [place] early this year. As I said, he has a history of a prior overdose on Seroquel. FAMILY HISTORY: He has a brother who has depression and a sister who committed suicide. His father has trouble with alcohol abuse. MEDICAL HISTORY: He denied any medical problems. SUBSTANCE ABUSE HISTORY: It appears that this patient has a significant problem with alcohol abuse. He denies any history of abusing any drugs other than alcohol. MENTAL STATUS EXAMINATION: He is verbally spontaneous. Eye contact is good. There is no formal thought disorder noted. He said his mood is good. His affect is constricted but appropriate to his mood. He is not psychotic, suicidal, homicidal. Concentration is fair. Memory intact. Insight and judgment are good. DIAGNOSES: 1. Major depressive disorder, recurrent, in remission. 2. History of generalized anxiety disorder. 3. Alcohol use disorder. TREATMENT PLAN: At this point, the patient describes his mood as good. He says that this is the best combination of medications he has been on. 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 He is denying that he has suicidal thoughts, and apparently the patient had been obtaining his medications on a daily basis. Therefore, I feel that from a psychiatric point of view this patient can be discharged, as I do not feel that he is a risk to himself.
--- NOTE | 2016-10-10 01:30 | DSES ---
DATE OF ADMISSION: 10/08/2016 DATE OF DISCHARGE: 10/08/2016 CONSULTANTS DURING THIS ADMISSION: Dr. Noa Cain. PRIMARY DISCHARGE DIAGNOSES: 1. Alcoholic intoxication. 2. Severe depression. 3. History of anxiety. 4. History of suicidal ideation, overdose. 5. Insomnia. 6. Headache. DISCHARGE MEDICATIONS: - Wellbutrin 150 mg daily - trazodone 200 mg nightly - fluoxetine 20 mg daily - acetaminophen 650 every four as needed for pain - ibuprofen 800 mg by mouth every 6 hours as needed for pain HOSPITAL COURSE: This is a 36-year-old male with prior history of severe depression, anxiety, alcohol dependency, was recently admitted to inpatient mental health unit at [facility] on 06/30/2016 and discharged 07/13/2016, for alcohol intoxication, insomnia, severe depression, was brought into the emergency room on 10/08/2016 after patient was found to be intoxicated in his home at 10:30 p.m. Patient started drinking at 8:30 p.m. Denies any recent relationship or job stressors. Patient has not had a drink since 06/29/2016 and has been taking his medications via [facility], has a pickup and does not have any of his medications at home, was brought by a colleague due to concerns of empty pill bottles in his home. Patient was brought into the emergency room for a possible Wellbutrin overdose. At that time, EKG was normal. No prolonged QT. Poison Control was contacted. Patient was given activated charcoal with a recommendation to observe for prolonged QT. Hospitalist service was called to admit for a possible drug overdose and possible suicide attempt. At that time, on admission, patient was interviewed. He stated that he did not wish to harm himself that this was not a suicide attempt and that he does not have any of his medications at home and has pickup for his medications, that is to say he goes to the [facility] to obtain his medications, it is administered to him and he goes home. I have asked the emergency room nurse to clarify this and confirm with [facility] that the patient does not have medications at home and he does indeed go to the pharmacy once daily to take his medication. Once pill count was done and patient's statement was confirmed, he was felt to not have attempted an overdose and was not suicidal. Dr. Noa Cain was consulted to assess for severe depression and suicidal ideation. She felt that the patient may be discharged home. This was not a suicide attempt and it was not a drug overdose. Repeat EKG again showed normal EKG with no prolonged QT. Patient received intravenous fluids during his few hours of hospital stay. He also did receive Toradol and Fioricet for a headache. All lab work was normal and patient was discharged in stable condition after being cleared by psychiatry, Dr. Cain. LABORATORIES ON DISCHARGE: White count 5.6, hemoglobin 16, hematocrit 47, platelet count 251. Sodium 143, potassium 3.8, chloride 105, bicarbonate 32, BUN 9, creatinine 1.22, glucose 92, calcium 8.8, total bilirubin 0.6, direct bilirubin 0.1, AST 13, ALT 21, alkaline phosphatase 61, albumin 4.6, TSH 0.74. 12-lead EKG ventricular rate of 84, MS 160, QRS 104, QT 339, QTc 401, normal EKG, no change.
== END 2016-10-08 19:49 | disposition home or self-care (01) ==
LOC: M ED 03:05 → M ED INP 07:52 → M MSPAV 16:37
PROVIDERS: ADMIT General Practice; ATTEND General Practice
DX: F10.120 Alcohol abuse with intoxication, uncomplicated (principal); F33.40 Major depressive disorder, recurrent, in remission, unspecified; F41.1 Generalized anxiety disorder; Z91.5 Personal history of self-harm; G47.00 Insomnia, unspecified; R51 Headache; Z79.899 Other long term (current) drug therapy
CPT/HCPCS: 80048; 80076; 80306; 84443; 85027; 93005; 96361; 96374; 99285; G0480; J1885

== ENCOUNTER 2016-11-11 15:46 | Emergency (ER) | payer OTHER ==
[~2016-11-11] VITALS: Ht 172.7 cm; Wt 75.0 kg
[~2016-11-11 15:46] MED LIST changes: +ACET1TAB17 PO; +FLUO20TA28 PO; -FOLI1TAB2 PO; +FOLI1TAB4 PO; -HYDR-4274 PO; +HYDR50TA70 PO; +IBUP80TA PO; +MELA3TAB49 PO; -THIA100T PO; +THIA100T6 PO; +TRAZ-136 PO; +WELLTAB38 PO
[2016-11-11] MEDS ORDERED: LORazepam 2 MG/ML VIAL (J2060) IV STA (16:13)
[2016-11-11] MEDS ORDERED: OXAZEPAM 15 MG CAP PO ONE (16:15)
[2016-11-11] MEDS ORDERED: NS 1,000 ML IV ONE (16:15)
[2016-11-11 17:08] LABS: MEAN CORPUSCULAR HEMOGLOBIN 32.7 pg (27.0-33.0); MEAN CORPUSCULAR HGB CONC 35.1 g/dl (32.0-36.5); MEAN CORPUSCULAR VOLUME 93.1 fl (80.0-96.0); RED CELL DISTRIBUTION WIDTH 12.4 % (11.5-14.5); WHITE BLOOD COUNT 6.8 K/mm3 (4.0-10.0)
[2016-11-11 17:54] LABS: ALBUMIN 4.2 GM/DL (3.2-5.2); ALKALINE PHOSPHATASE 74 U/L (45-117); ALT/SGPT 24 U/L (12-78); ANION GAP 15 MEQ/L (8-16); AST/SGOT 20 U/L (15-37); BILIRUBIN,DIRECT 0.3 MG/DL (0.0-0.2); BILIRUBIN,TOTAL 1.2 MG/DL (0.2-1.0); BLOOD UREA NITROGEN 11 MG/DL (7-18); CALCIUM LEVEL 9.5 MG/DL (8.5-10.1); CARBON DIOXIDE LEVEL 24 MEQ/L (21-32); CHLORIDE LEVEL 97 MEQ/L (98-107); CREATININE FOR GFR 1.21 MG/DL (0.70-1.30); GLOMERULAR FILTRATION RATE > 60.0 (>60); GLUCOSE, FASTING 104 MG/DL (70-105); POTASSIUM SERUM 3.6 MEQ/L (3.5-5.1); SODIUM LEVEL 136 MEQ/L (136-145); TOTAL PROTEIN 7.7 GM/DL (6.4-8.2)
[2016-11-11 18:41] LABS: METHADONE URINE NEGATIVE (NEGATIVE)
[2016-11-12 07:21] VITALS: BP 122/76
--- NOTE | 2016-11-12 10:07 | ECGEPIP ---
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
== END 2016-11-12 07:22 ==
LOC: M ED 15:46
DX: F32.9 Major depressive disorder, single episode, unspecified (principal); F10.239 Alcohol dependence with withdrawal, unspecified; R45.851 Suicidal ideations; F41.9 Anxiety disorder, unspecified; F43.10 Post-traumatic stress disorder, unspecified; Z88.2 Allergy status to sulfonamides; Z79.899 Other long term (current) drug therapy
CPT/HCPCS: 80048; 80076; 80307; 84443; 85027; 93005; 96361; 96374; 96375; 99284; G0480; J2060